=== PATIENT | male | born 1955 | race Caucasian/White ===

== ENCOUNTER → 2019-07-30 10:26 | Outpatient (CLI) | payer OTHER, SELFPAY ==
[2019-07-30 10:18] VITALS: BMI 25.0
--- NOTE | 2019-07-30 10:26 | RAD_ITS ---
STUDY: X-RAY - LEFT KNEE REASON FOR EXAM: Chronic pain. TECHNIQUE: 4 view(s) of the knee. COMPARISON: None. FINDINGS: Normal visualized distal femur. Normal visualized proximal tibia and fibula. Normal proximal tibiofibular articulation. Normal medial femorotibial compartment. Normal lateral femorotibial compartment. There is a small marginal osteophyte of the lateral patellar facet without joint space narrowing of the patellofemoral articulation. There is a small enthesophyte at the superior pole of the patella. RAD/Knee 4 or More Views IMPRESSION: Small marginal osteophyte of the patella. Small patellar enthesophyte. Electronically Signed: Stanislaw Julio MD at 15:21 EST Tel , Service support ,
== END ==
PROVIDERS: PCP Family Medicine; Referring Provider Orthopaedic Surgery; Visit Provider Orthopaedic Surgery
DX: M25.562 Pain in left knee (principal)
CPT/HCPCS: 73564